=== PATIENT | female | born 1960 | race Caucasian/White ===

== ENCOUNTER 2016-12-21 09:53 | Observation (INO) | payer SELFPAY ==
--- NOTE | 2016-12-21 10:25 | ER Document Report ---
ED Medical Screen (RME) - General Stated Complaint: CHEST PAIN Time seen by provider: 10:23 Mode of Arrival: Ambulatory Information source: Patient, Relative Notes: 56-year-old female presents to ED for left chest pain goes around to her left axilla and states that the left side jerks a lot. Her sister is with her. She states that the patient has dementia. Patient smokes but no alcohol or drugs. Sister denies history of heart problems blood pressure cholesterol. Sister states that the parents both have heart problems. Sr. denies any recent injury to cause this pain. I have greeted and performed a rapid initial assessment of this patient. A comprehensive ED assessment and evaluation of the patient, analysis of test results and completion of medical decision making process will be conducted by an additional ED providers. TRAVEL OUTSIDE OF THE [place] IN LAST 30 DAYS: No - Related Data Allergies/Adverse Reactions: No Known Allergies Allergy (Unverified 12/21/16 10:22) Physical Exam - Vital signs Vitals: Temp Pulse Resp BP Pulse Ox 97.4 F 66 20 158/89 H 100 12/21/16 10:19 12/21/16 10:19 12/21/16 10:19 12/21/16 10:19 12/21/16 10:19 Course - Vital Signs Vital signs: Temp Pulse Resp BP Pulse Ox 97.4 F 66 20 158/89 H 100 12/21/16 10:19 12/21/16 10:19 12/21/16 10:19 12/21/16 10:19 12/21/16 10:19
[2016-12-21] MEDS ORDERED: ASPIRIN 81 MG TABLET, CHEWABLE PO ONE (10:26)
[2016-12-21 11:25] LABS: ABSOLUTE EOSINOPHILS # (AUTO) 0.1 10^3/uL (0.0-0.6); ABSOLUTE LYMPHOCYTES (AUTO) 1.1 10^3/uL (0.5-4.7); ABSOLUTE MONOCYTES (AUTO) 0.3 10^3/uL (0.1-1.4); ABSOLUTE NEUT (AUTO) 4.7 10^3/uL (1.7-8.2); BASOPHILS % (AUTO) 0.6 % (0-2); EOSINOPHILS % (AUTO) 1.7 % (0-6); HEMATOCRIT 43.7 % (36.0-47.0); HEMOGLOBIN 15.2 g/dL (12.0-15.5); HGB HCT DIFFERENCE 1.9; LYMPHOCYTES % (AUTO) 18.1 % (13-45); MEAN CORPUSCULAR HGB CONC 34.7 g/dL (32.0-36.0); MEAN CORPUSCULAR VOLUME 92 fl (80-97); MONOCYTES % (AUTO) 4.4 % (3-13); RED BLOOD COUNT 4.74 10^6/uL (3.72-5.28); RED CELL DISTRIBUTION WIDTH 13.9 % (11.5-14.0); SEGMENTED NEUTROPHILS % (AUTO) 75.2 % (42-78); WHITE BLOOD COUNT 6.2 10^3/uL (4.0-10.5)
[2016-12-21 11:32] LABS: PROTHROMBIN TIME 12.2 SEC (11.4-15.4)
[2016-12-21 11:33] LABS: PARTIAL THROMBOPLASTIN TIME 31.6 SEC (23.5-35.8)
[2016-12-21 11:46] LABS: ALANINE AMINOTRANSFERASE 239 U/L (9-52); ALBUMIN 4.4 g/dL (3.5-5.0); ALKALINE PHOSPHATASE 166 U/L (38-126); ANION GAP 12 (5-19); ASPARTATE AMINO TRANSFERASE 119 U/L (14-36); BILIRUBIN,DIRECT 0.3 mg/dL (0.0-0.4); BILIRUBIN,TOTAL 0.7 mg/dL (0.2-1.3); BLOOD UREA NITROGEN 12 mg/dL (7-20); CALCIUM 10.3 mg/dL (8.4-10.2); CARBON DIOXIDE 28 mmol/L (22-30); CHLORIDE 109 mmol/L (98-107); CREATINE KINASE 84 U/L (30-135); CREATININE RESULT 0.72 mg/dL (0.52-1.25); GLUCOSE 98 mg/dL (75-110); LIPASE 121.8 U/L (23-300); POTASSIUM 4.1 mmol/L (3.6-5.0); SODIUM 149.1 mmol/L (137-145); TOTAL PROTEIN 7.2 g/dL (6.3-8.2)
[2016-12-21 11:58] LABS: CREATINE KINASE MB 1.55 ng/mL (<4.55)
[2016-12-21 11:59] LABS: TROPONIN I < 0.012 ng/mL
--- NOTE | 2016-12-21 12:28 | ER Document Report ---
ED General - General Chief Complaint: Chest Pain Stated Complaint: CHEST PAIN Mode of Arrival: Ambulatory Information source: Patient Notes: 56-year-old female with early onset dementia presents with family member with concerns of left-sided chest pain that lasted for about 30 minutes. Patient was found crying complaining of the pain. Pain seemed to radiate across her breast to her side. Patient this time denies any concerns family member notes they contacted the family doctor who requested patient be seen TRAVEL OUTSIDE OF THE [place] IN LAST 30 DAYS: No - HPI Onset: Just prior to arrival Onset/Duration: Sudden Quality of pain: Achy Severity: Mild Pain Level: 1 Associated symptoms: Chest pain Exacerbated by: Denies Relieved by: Denies Similar symptoms previously: No Recently seen / treated by doctor: No - Related Data Allergies/Adverse Reactions: No Known Allergies Allergy (Unverified 12/21/16 10:22) Past Medical History - General Information source: Patient, Relative - Social History Smoking Status: Current Every Day Smoker Cigarette use (# per day): Yes Chew tobacco use (# tins/day): No Smoking Education Provided: No Frequency of alcohol use: None Drug Abuse: None Family History: Reviewed & Not Pertinent Patient has suicidal ideation: No Patient has homicidal ideation: No - Past Medical History Cardiac Medical History: Reports: Hx Hypertension - noncompliant with meds Renal/ Medical History: Denies: Hx Peritoneal Dialysis Past Surgical History: Reports: Hx Cholecystectomy - Immunizations Hx Diphtheria, Pertussis, Tetanus Vaccination: No Review of Systems - Review of Systems Notes: REVIEW OF SYSTEMS: CONSTITUTIONAL : Denies fever, chills, or sweats. Denies recent illness. EENT: Denies eye, ear, throat, or mouth pain or symptoms. Denies nasal or sinus congestion or discharge. Denies throat, tongue, or mouth swelling or difficulty swallowing. CARDIOVASCULAR: Admits to chest pain RESPIRATORY: Denies cough, cold, or chest congestion. Denies shortness of breath, difficulty breathing, or wheezing. GASTROINTESTINAL: Denies abdominal pain or distention. Denies nausea, vomiting , or diarrhea. Denies blood in vomitus, stools, or per rectum. Denies black, tarry stools. Denies constipation. GENITOURINARY: Denies difficulty urinating, painful urination, burning, frequency, blood in urine, or discharge. FEMALE GENITOURINARY: Denies vaginal bleeding, heavy or abnormal periods, irregular periods. Denies vaginal discharge or odor. MUSCULOSKELETAL: Denies back or neck pain or stiffness. Denies joint pain or swelling. SKIN: Denies rash, lesions or sores. HEMATOLOGIC : Denies easy bruising or bleeding. LYMPHATIC: Denies swollen, enlarged glands. NEUROLOGICAL: Denies confusion or altered mental status. Denies passing out or loss of consciousness. Denies dizziness or lightheadedness. Denies headache. Denies weakness or paralysis or loss of use of either side. Denies problems with gait or speech. Denies sensory loss, numbness, or tingling. Denies seizures. PSYCHIATRIC: Denies anxiety or stress. Denies depression, suicidal ideation, or homicidal ideation. ALL OTHER SYSTEMS REVIEWED AND NEGATIVE. Dictation was performed using [employer] voice recognition software PHYSICAL EXAMINATION: GENERAL: Chronically ill-appearing cachectic female HEAD: Atraumatic, normocephalic. EYES: Pupils equal round and reactive to light, extraocular movements intact, conjunctiva are normal. ENT: Nares patent, oropharynx clear without exudates. Moist mucous membranes. NECK: Normal range of motion, supple without lymphadenopathy LUNGS: Breath sounds clear to auscultation bilaterally and equal. No wheezes rales or rhonchi. HEART: Regular rate and rhythm without murmurs ABDOMEN: Soft, nontender, nondistended abdomen. No guarding, no rebound. No masses appreciated. Female : deferred Musculoskeletal: Normal range of motion, no pitting or edema. No cyanosis. NEUROLOGICAL: Cranial nerves grossly intact. Normal speech, normal gait. Normal sensory, motor exams PSYCH: Normal mood, normal affect. SKIN: Warm, Dry, normal turgor, no rashes or lesions noted. Physical Exam - Vital signs Vitals: Temp Pulse Resp BP Pulse Ox 97.4 F 66 20 158/89 H 100 12/21/16 10:19 12/21/16 10:19 12/21/16 10:19 12/21/16 10:19 12/21/16 10:19 Course - Re-evaluation Re-evalutation: 12/21/16 12:30 Cardiac enzymes are negative, patient does have elevated liver enzymes. Given that the patient had 30 minutes of chest pain with a history of hypertension smoking and uncontrolled by medications I believe she will require an ACS rule out primary care physician was contacted awaiting callback 12/21/16 12:42 - Vital Signs Vital signs: Temp Pulse Resp BP Pulse Ox 97.4 F 66 20 158/89 H 100 12/21/16 10:19 12/21/16 10:19 12/21/16 10:19 12/21/16 10:19 12/21/16 10:19 - Laboratory Result Diagrams: 12/21/16 10:58 12/21/16 10:58 Laboratory results interpreted by me: 12/21/16 12/21/16 10:58 10:58 Plt Count 127 L Sodium 149.1 H Chloride 109 H Calcium 10.3 H AST 119 H ALT 239 H Alkaline Phosphatase 166 H - Diagnostic Test Radiology reviewed: Image reviewed, Reports reviewed - EKG Interpretation by Me EKG shows normal: Sinus rhythm, Walls, Intervals, QRS Complexes Discharge - Discharge Clinical Impression: Elevated liver enzymes Chest pain Qualifiers: Chest pain type: unspecified Qualified Code(s): R07.9 - Chest pain, unspecified Hypertension Qualifiers: Hypertension type: essential hypertension Qualified Code(s): I10 - Essential ( primary) hypertension Dementia Qualifiers: Dementia type: unspecified type Dementia behavioral disturbance: without behavioral disturbance Qualified Code(s): F03.90 - Unspecified dementia without behavioral disturbance Condition: Stable Disposition: ADMITTED OBSERVATION Admitting Provider: Roxana Unit Admitted: Telemetry
[2016-12-21] MEDS ORDERED: LORAZEPAM INJ 2 MG/1 ML VIAL IV ONE (15:11)
[2016-12-21 17:33] LABS: CREATINE KINASE MB 1.21 ng/mL (<4.55)
[2016-12-21 17:34] LABS: TROPONIN I < 0.012 ng/mL
--- NOTE | 2016-12-21 18:18 | PDOC H&P ---
History of Present Illness Admission Date/PCP: 12/21/16 12:56 CHUCK [place] Patient complains of: Chest pain History of Present Illness: KAI AMES is a 56 year old female known to my practice who was brought to the ED by sister due to reported left sided chest pain that radiate to her left arm and upper back. Sister reported witnessing patient in pain and crying with tears. Pain lasted about 40 minutes before presenting to the ED. There was no observed difficulty with breathing, diaphoresis, nausea, or vomiting. No reported abdominal pain. No fever or chills. Patient has history of dementia with behavioral disturbance, hypertension, cigarette smoking, anxiety, low back pain, adult failure to thrive and medication noncompliance. There is no history of alcohol or illicit drug abuse. No significant family history of coronary heart disease. Past Medical History Cardiac Medical History: Reports: Hypertension - noncompliant with meds Psychiatric Medical History: Reports: Dementia, Tobacco Dependency Past Surgical History Past Surgical History: Reports: Cholecystectomy Social History Smoking Status: Current Every Day Smoker Cigarettes Packs Per Day: 1 Frequency of Alcohol Use: Rare Hx Recreational Drug Use: No Drugs: None Hx Prescription Drug Abuse: No - Advance Directive Resuscitation Status: Full Code Family History Family History: Reviewed & Not Pertinent Parental Family History Reviewed: Yes Children Family History Reviewed: Yes Sibling(s) Family History Reviewed.: Yes Medication/Allergy Home Medications: No Home Medications 12/21/16 Allergies/Adverse Reactions: No Known Allergies Allergy (Unverified 12/21/16 10:22) Review of Systems Review of Systems: Collaborated largely by sister and doctor's office note Constitutional: ABSENT: chills, fever(s), headache(s), weight gain, weight loss Eyes: ABSENT: visual disturbances Nose, Mouth, and Throat: ABSENT: as per HPI, headache(s), mouth pain, sore throat, vertigo, other Cardiovascular: PRESENT: chest pain. ABSENT: as per HPI, dyspnea on exertion, edema, orthropnea, palpitations, other Respiratory: ABSENT: as per HPI, cough, dyspnea, hemoptysis, sputum, other Gastrointestinal: ABSENT: as per HPI, abdominal pain, bloating, coffee ground emesis, constipation, diarrhea, dysphagia, heartburn, hematemesis, hematochezia , melena, nausea, vomiting, other Genitourinary: ABSENT: as per HPI, difficulty urinating, dysuria, hematuria, nocturia, other Musculoskeletal: PRESENT: back pain. ABSENT: as per HPI, deformity, joint swelling, muscle weakness, other Integumentary: ABSENT: as per HPI, diaphoresis, erythema, lesions, pruritus, rash, wounds, other Neurological: PRESENT: confusion, memory loss. ABSENT: as per HPI, abnormal gait, abnormal movements, abnormal speech, convulsions, dizziness, focal weakness, frequent falls, lack of coordination, numbness, paresthesias, restless legs, syncope, tingling, tremor(s), vertigo, weakness, other Psychiatric: ABSENT: as per HPI, anxiety, depression, hallucinations, homidical ideation, suicidal ideation, other Endocrine: ABSENT: as per HPI, cold intolerance, flushing, heat intolerance, menstrual abnormalities, polydipsia, polyphagia, polyuria, other Hematologic/Lymphatic: ABSENT: as per HPI, easy bleeding, easy bruising, lymphadenopathy, other Physical Exam Vital Signs: Temp Pulse Resp BP Pulse Ox 98.3 F 64 18 159/73 H 100 12/21/16 16:07 12/21/16 16:07 12/21/16 16:07 12/21/16 16:07 12/21/16 16:07 General appearance: PRESENT: no acute distress, cooperative Head exam: PRESENT: atraumatic, normocephalic Eye exam: PRESENT: conjunctiva pink, EOMI, PERRLA. ABSENT: scleral icterus Ear exam: PRESENT: normal external ear exam Mouth exam: PRESENT: moist, tongue midline Throat exam: ABSENT: post pharyngeal erythema, tonsillar erythema, tonsillar exudate, tonsillogmegaly, other Neck exam: PRESENT: full ROM. ABSENT: carotid bruit, JVD, lymphadenopathy, thyromegaly Respiratory exam: PRESENT: clear to auscultation harsh Cardiovascular exam: PRESENT: RRR. ABSENT: diastolic murmur, rubs, systolic murmur Pulses: PRESENT: normal dorsalis pedis pul, +2 pedal pulses bilateral Vascular exam: PRESENT: normal capillary refill GI/Abdominal exam: PRESENT: normal bowel sounds, soft. ABSENT: distended, guarding, mass, organolmegaly, rebound, tenderness Rectal exam: PRESENT: deferred Extremities exam: PRESENT: full ROM Musculoskeletal exam: PRESENT: deformity - due to joint involvement with arthritis Neurological exam: PRESENT: alert, awake. ABSENT: altered, oriented to person, oriented to place, oriented to time, oriented to situation, reflexes normal, abnormal gait, ataxia, CN II-XII grossly intact, motor sensory deficit, normal gait, aphasic, other Psychiatric exam: PRESENT: appropriate affect, normal mood. ABSENT: homicidal ideation, suicidal ideation Skin exam: PRESENT: dry, intact, warm. ABSENT: cyanosis, rash Results Laboratory Results: Reviewed on [employer] and form significant part of my medical decision making. 12/21/16 12/21/16 16:53 16:53 Creatine Kinase 95 CK-MB (CK-2) 1.21 Troponin I < 0.012 Impressions: Chest X-Ray 12/21/16 10:25 IMPRESSION: NO SIGNIFICANT RADIOGRAPHIC FINDING IN THE CHEST. Assessment & Plan - Diagnosis (1) Dementia with behavioral disturbance Qualifiers: Dementia type: unspecified type Qualified Code(s): F03.91 - Unspecified dementia with behavioral disturbance Is this a current diagnosis for this admission?: YesPlan: See admitting physician orders. (2) Severe protein-calorie malnutrition Is this a current diagnosis for this admission?: YesPlan: See admitting physician orders (3) Nicotine dependence Qualifiers: Nicotine product type: cigarettes Is this a current diagnosis for this admission?: YesPlan: See admitting physician orders (5) Chronic low back pain Qualifiers: Back pain laterality: unspecified Is this a current diagnosis for this admission?: YesPlan: See admitting physician orders (6) Chest pain Qualifiers: Chest pain type: unspecified Qualified Code(s): R07.9 - Chest pain, unspecified Is this a current diagnosis for this admission?: YesPlan: See admitting physician orders (7) Elevated liver enzymes Is this a current diagnosis for this admission?: YesPlan: See admitting physician orders (8) Hypertension Qualifiers: Hypertension type: essential hypertension Qualified Code(s): I10 - Essential (primary) hypertension Is this a current diagnosis for this admission?: YesPlan: See admitting physician orders - Time Time Spent: 50 to 70 Minutes - Inpatient Certification Medical Necessity: Need Close Monitoring Due to Risk of Patient Decompensation, Need For IV Fluids, Need For Continuous Telemetry Monitoring, Risk of Complication if Not Cared For in Hospital Post Hospital Care: D/C Sports Clerk Documentation - Plan Summary Plan Summary: See admitting physician orders
[2016-12-21 19:41] LABS: PROTHROMBIN TIME 12.5 SEC (11.4-15.4)
[2016-12-21 19:42] LABS: PARTIAL THROMBOPLASTIN TIME 30.8 SEC (23.5-35.8)
[2016-12-21] MEDS ORDERED: ENOXAPARIN SODIUM INJ 30 MG/0.3 ML DISP.SYRIN SUBCUT ONE (20:00)
--- NOTE | 2016-12-21 20:43 | EKG REPORT ---
SEVERITY:- ABNORMAL ECG - SINUS RHYTHM WILNER, CONSIDER BIATRIAL ABNORMALITIES : Confirmed by: Noemi Navarro 21-Dec-2016 20:42:59
[2016-12-21 23:05] LABS: CREATINE KINASE MB 1.04 ng/mL (<4.55)
[2016-12-21 23:43] LABS: TROPONIN I < 0.012 ng/mL
[2016-12-22] MEDS: LANSOPRAZOLE 30 MG TAB.RAP.DR PO SCH (05:24)
[2016-12-22 05:46] LABS: ABSOLUTE EOSINOPHILS # (AUTO) 0.2 10^3/uL (0.0-0.6); ABSOLUTE LYMPHOCYTES (AUTO) 1.3 10^3/uL (0.5-4.7); ABSOLUTE MONOCYTES (AUTO) 0.4 10^3/uL (0.1-1.4); ABSOLUTE NEUT (AUTO) 5.2 10^3/uL (1.7-8.2); BASOPHILS % (AUTO) 0.6 % (0-2); EOSINOPHILS % (AUTO) 2.1 % (0-6); HEMATOCRIT 39.7 % (36.0-47.0); HEMOGLOBIN 13.6 g/dL (12.0-15.5); HGB HCT DIFFERENCE 1.1; LYMPHOCYTES % (AUTO) 18.4 % (13-45); MEAN CORPUSCULAR HEMOGLOBIN 31.3 pg (27.0-33.4); MEAN CORPUSCULAR HGB CONC 34.2 g/dL (32.0-36.0); MEAN CORPUSCULAR VOLUME 92 fl (80-97); MONOCYTES % (AUTO) 5.5 % (3-13); RED BLOOD COUNT 4.34 10^6/uL (3.72-5.28); RED CELL DISTRIBUTION WIDTH 13.8 % (11.5-14.0); SEGMENTED NEUTROPHILS % (AUTO) 73.4 % (42-78); WHITE BLOOD COUNT 7.2 10^3/uL (4.0-10.5)
[2016-12-22 06:03] LABS: ALANINE AMINOTRANSFERASE 158 U/L (9-52); ALBUMIN 3.9 g/dL (3.5-5.0); ALKALINE PHOSPHATASE 135 U/L (38-126); ANION GAP 14 (5-19); ASPARTATE AMINO TRANSFERASE 58 U/L (14-36); BILIRUBIN,DIRECT 0.3 mg/dL (0.0-0.4); BILIRUBIN,TOTAL 1.1 mg/dL (0.2-1.3); BLOOD UREA NITROGEN 10 mg/dL (7-20); CALCIUM 9.8 mg/dL (8.4-10.2); CARBON DIOXIDE 21 mmol/L (22-30); CHLORIDE 111 mmol/L (98-107); CREATINE KINASE 135 U/L (30-135); CREATININE RESULT 0.62 mg/dL (0.52-1.25); GLUCOSE 93 mg/dL (75-110); POTASSIUM 3.7 mmol/L (3.6-5.0); SODIUM 145.8 mmol/L (137-145); TOTAL PROTEIN 6.4 g/dL (6.3-8.2)
[2016-12-22 06:14] LABS: TROPONIN I < 0.012 ng/mL
[2016-12-22] MEDS: ENOXAPARIN SODIUM INJ 30 MG/0.3 ML DISP.SYRIN SUBCUT SCH (07:45)
[2016-12-22] MEDS: LISINOPRIL 10 MG TABLET PO SCH (09:04)
[2016-12-22] MEDS: HYDROCHLOROTHIAZIDE 12.5 MG CAPSULE PO SCH (09:05)
[2016-12-22] MEDS: PRENATAL VITAMIN W-O CA NO5/FE FUMARATE/FA CAPSULE PO SCH (09:05)
[2016-12-22] MEDS: OMEGA-3 ACID ETHYL ESTERS 1 GM CAPSULE PO SCH (09:05)
[2016-12-22] MEDS ORDERED: (PENDING PHARMACY ID) (Multivits-Min/Iron/Fa/Lutein [Centrum Silver Women Tablet] 1 TAB) PO SCH (10:00)
[2016-12-22] MEDS ORDERED: (PENDING PHARMACY ID) (Lisinopril/Hydrochlorothiazide [Lisinopril-Hctz 10-12.5 Mg Tab] 1 T PO SCH (10:00)
[2016-12-22] MEDS ORDERED: (PENDING PHARMACY ID) (Memantine Hcl/Donepezil Hcl [Namzaric 28 Mg-10 Mg Capsule] 1 CAP) PO SCH (10:00)
[2016-12-22] MEDS ORDERED: (PENDING PHARMACY ID) (Omega-3 Fatty Acids/Fish Oil [Fish Oil 1,000 Mg Capsule] 1 CAP) PO SCH (10:00)
[2016-12-22] MEDS ORDERED: NICOTINE 21 MG/24 HR PATCH.TD24 TD ONE (12:45)
--- NOTE | 2016-12-22 17:22 | PDOC PROGRESS REPORT ---
Subjective Progress Note for:: 12/22/16 Subjective:: Patient remain disruptive with care due to her baseline dementia. She remain on IV fluid hydration. No reported observed chest pain or difficulty with breathing. No reported fever or chills. No vomiting or diarrhea. She remain on soft wrist restrain and frequent reorientation for her confusional state management. Physical Exam Vital Signs: Temp Pulse Resp BP Pulse Ox 98.0 F 54 L 16 146/79 H 99 12/22/16 08:00 12/22/16 08:00 12/22/16 08:00 12/22/16 08:00 12/22/16 08:00 Intake & Output 12/21/16 12/22/16 12/23/16 06:59 06:59 06:59 Intake Total 1272 Balance 1272 Weight 42.5 kg General appearance: PRESENT: no acute distress, cooperative, thin Head exam: PRESENT: atraumatic, normocephalic Eye exam: PRESENT: conjunctiva pink, EOMI, PERRLA. ABSENT: scleral icterus Mouth exam: PRESENT: moist Respiratory exam: PRESENT: clear to auscultation harsh Cardiovascular exam: PRESENT: RRR. ABSENT: diastolic murmur, rubs, systolic murmur GI/Abdominal exam: PRESENT: normal bowel sounds, soft. ABSENT: distended, guarding, mass, organolmegaly, rebound, tenderness Extremities exam: PRESENT: full ROM Musculoskeletal exam: PRESENT: deformity - related to joint involvement with arthritis Neurological exam: PRESENT: alert, awake. ABSENT: oriented to person, oriented to place, oriented to time, oriented to situation, CN II-XII grossly intact, motor sensory deficit Psychiatric exam: PRESENT: appropriate affect - but globally disoriented Skin exam: PRESENT: dry, intact, warm. ABSENT: cyanosis, rash Results Laboratory Results: 12/22/16 04:45 12/22/16 04:45 12/22/16 12/22/16 04:45 04:45 WBC 7.2 RBC 4.34 Hgb 13.6 Hct 39.7 MCV 92 MCH 31.3 MCHC 34.2 RDW 13.8 Plt Count 118 L Seg Neutrophils % 73.4 Lymphocytes % 18.4 Monocytes % 5.5 Eosinophils % 2.1 Basophils % 0.6 Absolute Neutrophils 5.2 Absolute Lymphocytes 1.3 Absolute Monocytes 0.4 Absolute Eosinophils 0.2 Absolute Basophils 0.0 Sodium 145.8 H Potassium 3.7 Chloride 111 H Carbon Dioxide 21 L Anion Gap 14 BUN 10 Creatinine 0.62 Est GFR ( Amer) > 60 Est GFR (Non-Af Amer) > 60 Glucose 93 Calcium 9.8 Total Bilirubin 1.1 AST 58 H ALT 158 H Alkaline Phosphatase 135 H Total Protein 6.4 Albumin 3.9 12/21/16 12/21/16 12/21/16 16:53 16:53 22:30 Creatine Kinase 95 97 CK-MB (CK-2) 1.21 Troponin I < 0.012 12/21/16 12/22/16 12/22/16 22:30 04:45 04:45 Creatine Kinase 135 CK-MB (CK-2) 1.04 1.40 Troponin I < 0.012 < 0.012 Impressions: Chest X-Ray 12/21/16 10:25 IMPRESSION: NO SIGNIFICANT RADIOGRAPHIC FINDING IN THE CHEST. Assessment & Plan - Diagnosis (1) Dementia with behavioral disturbance Qualifiers: Dementia type: unspecified type Qualified Code(s): F03.91 - Unspecified dementia with behavioral disturbance Is this a current diagnosis for this admission?: YesPlan: See attending physician orders. (2) Severe protein-calorie malnutrition Is this a current diagnosis for this admission?: YesPlan: See attending physician orders. (3) Nicotine dependence Qualifiers: Nicotine product type: cigarettes Is this a current diagnosis for this admission?: YesPlan: See attending physician orders. (4) Anxiety Is this a current diagnosis for this admission?: YesPlan: See attending physician orders. (5) Chronic low back pain Qualifiers: Back pain laterality: unspecified Is this a current diagnosis for this admission?: Yes (6) Chest pain Qualifiers: Chest pain type: unspecified Qualified Code(s): R07.9 - Chest pain, unspecified Is this a current diagnosis for this admission?: Yes (7) Elevated liver enzymes Is this a current diagnosis for this admission?: YesPlan: See attending physician orders. (8) Hypertension Qualifiers: Hypertension type: essential hypertension Qualified Code(s): I10 - Essential (primary) hypertension Is this a current diagnosis for this admission?: YesPlan: See attending physician orders. - Time Time Spent with patient: 25-34 minutes Medications reviewed and adjusted accordingly: Yes Anticipated discharge: SNF - Inpatient Certification Medical Necessity: Need For IV Fluids, Need For Continuous Telemetry Monitoring , Risk of Complication if Not Cared For in Hospital Post Hospital Care: D/C or Transfer Summary - Plan Summary Plan Summary: See attending physician orders.
[2016-12-22] MEDS: TRAMADOL HCL 50 MG TABLET PO PRN (23:26)
[2016-12-23] MEDS: LANSOPRAZOLE 30 MG TAB.RAP.DR PO SCH (05:35)
[2016-12-23] MEDS: ENOXAPARIN SODIUM INJ 30 MG/0.3 ML DISP.SYRIN SUBCUT SCH (08:04)
[2016-12-23] MEDS: HYDROCHLOROTHIAZIDE 12.5 MG CAPSULE PO SCH (11:02)
[2016-12-23] MEDS: OMEGA-3 ACID ETHYL ESTERS 1 GM CAPSULE PO SCH (11:03)
[2016-12-23] MEDS: LISINOPRIL 10 MG TABLET PO SCH (11:03)
[2016-12-23] MEDS: PRENATAL VITAMIN W-O CA NO5/FE FUMARATE/FA CAPSULE PO SCH (11:03)
[2016-12-23] MEDS: NICOTINE 21 MG/24 HR PATCH.TD24 TD SCH (11:03)
[2016-12-23] MEDS: NORMAL SALINE 1000 ML 1,000 ML IV PRN (12:44)
--- NOTE | 2016-12-23 16:19 | PDOC PROGRESS REPORT ---
Subjective Progress Note for:: 12/23/16 Subjective:: Patient was admitted for chest pain, she has baseline dementia she is in restrained confuse Physical Exam Vital Signs: Temp Pulse Resp BP Pulse Ox 97.7 F 57 L 20 147/67 H 100 12/23/16 12:10 12/23/16 12:10 12/23/16 12:10 12/23/16 12:10 12/23/16 12:10 Intake & Output 12/22/16 12/23/16 12/24/16 06:59 06:59 06:59 Intake Total 1272 3025 540 Output Total 2200 1400 Balance 1272 825 -860 Weight 42.5 kg 42 kg General appearance: PRESENT: no acute distress Eye exam: PRESENT: PERRLA Respiratory exam: PRESENT: clear to auscultation harsh Cardiovascular exam: PRESENT: +S1, +S2 Results Laboratory Results: 12/22/16 04:45 12/22/16 04:45 12/21/16 12/21/16 12/21/16 16:53 16:53 22:30 Creatine Kinase 95 97 CK-MB (CK-2) 1.21 Troponin I < 0.012 12/21/16 12/22/16 12/22/16 22:30 04:45 04:45 Creatine Kinase 135 CK-MB (CK-2) 1.04 1.40 Troponin I < 0.012 < 0.012 Impressions: Chest X-Ray 12/21/16 10:25 IMPRESSION: NO SIGNIFICANT RADIOGRAPHIC FINDING IN THE CHEST. Assessment & Plan - Diagnosis (1) Chest pain Qualifiers: Chest pain type: unspecified Qualified Code(s): R07.9 - Chest pain, unspecified Is this a current diagnosis for this admission?: Yes (2) Dementia with behavioral disturbance Qualifiers: Dementia type: unspecified type Qualified Code(s): F03.91 - Unspecified dementia with behavioral disturbance Is this a current diagnosis for this admission?: Yes (3) Elevated liver enzymes Is this a current diagnosis for this admission?: Yes (4) Hypertension Qualifiers: Hypertension type: essential hypertension Qualified Code(s): I10 - Essential (primary) hypertension Is this a current diagnosis for this admission?: Yes (5) Nicotine dependence Qualifiers: Nicotine product type: cigarettes Is this a current diagnosis for this admission?: Yes
[2016-12-24] MEDS: LANSOPRAZOLE 30 MG TAB.RAP.DR PO SCH (05:48)
[2016-12-24] MEDS: NORMAL SALINE 1000 ML 1,000 ML IV PRN ×2 (05:50→17:00)
[2016-12-24] MEDS: ENOXAPARIN SODIUM INJ 30 MG/0.3 ML DISP.SYRIN SUBCUT SCH (08:16)
[2016-12-24] MEDS: OMEGA-3 ACID ETHYL ESTERS 1 GM CAPSULE PO SCH (11:08)
[2016-12-24] MEDS: NICOTINE 21 MG/24 HR PATCH.TD24 TD SCH (11:09)
[2016-12-24] MEDS: HYDROCHLOROTHIAZIDE 12.5 MG CAPSULE PO SCH (11:09)
[2016-12-24] MEDS: PRENATAL VITAMIN W-O CA NO5/FE FUMARATE/FA CAPSULE PO SCH (11:09)
[2016-12-24] MEDS: LISINOPRIL 10 MG TABLET PO SCH (11:09)
[2016-12-25] MEDS: LANSOPRAZOLE 30 MG TAB.RAP.DR PO SCH (06:01)
[2016-12-25] MEDS: NORMAL SALINE 1000 ML 1,000 ML IV PRN (06:37)
[2016-12-25] MEDS: ENOXAPARIN SODIUM INJ 30 MG/0.3 ML DISP.SYRIN SUBCUT SCH (07:47)
[2016-12-25] MEDS: TRAMADOL HCL 50 MG TABLET PO PRN (08:59)
[2016-12-25] MEDS: PRENATAL VITAMIN W-O CA NO5/FE FUMARATE/FA CAPSULE PO SCH (09:00)
[2016-12-25] MEDS: HYDROCHLOROTHIAZIDE 12.5 MG CAPSULE PO SCH (09:00)
[2016-12-25] MEDS: NICOTINE 21 MG/24 HR PATCH.TD24 TD SCH (09:00)
[2016-12-25] MEDS: OMEGA-3 ACID ETHYL ESTERS 1 GM CAPSULE PO SCH (09:00)
[2016-12-25] MEDS: LISINOPRIL 10 MG TABLET PO SCH (09:00)
--- NOTE | 2016-12-25 13:16 | PDOC DISCHARGE SUMMARY ---
General - Admit/Disc Date/PCP Admission Date/Primary Care Provider: 12/21/16 12:56 CHUCK MENDEZ Discharge Date: 12/25/16 - Discharge Diagnosis (1) Dementia with behavioral disturbance Is this a current diagnosis for this admission?: Yes (2) Severe protein-calorie malnutrition Is this a current diagnosis for this admission?: Yes (3) Nicotine dependence Is this a current diagnosis for this admission?: Yes (4) Anxiety Is this a current diagnosis for this admission?: Yes (5) Chronic low back pain Is this a current diagnosis for this admission?: Yes (6) Chest pain Is this a current diagnosis for this admission?: Yes (7) Elevated liver enzymes Is this a current diagnosis for this admission?: Yes (8) Hypertension Is this a current diagnosis for this admission?: Yes - Additional Information Resuscitation Status: Full Code Discharge Diet: Cardiac Discharge Activity: Activity As Tolerated Home Medications: Lisinopril/Hydrochlorothiazide [Lisinopril-Hctz 10-12.5 mg Tab] 1 tab PO DAILY 12/21/16 Memantine HCl/Donepezil HCl [Namzaric 28 mg-10 mg Capsule] 1 cap PO DAILY Multivits-Min/Iron/FA/Lutein [Centrum Silver Women Tablet] 1 tab PO DAILY [place]-3 Fatty Acids/Fish Oil [Fish Oil 1,000 mg Capsule] 1 cap PO DAILY Tramadol HCl 50 mg PO TID PRN 12/21/16 Nicotine [Nicoderm 21 mg/24 Hr Transderm Patch] 1 each TD DAILY #0 patch.[id number] History of Present Illness History of Present Illness: KAI AMES is a 56 year old female known to my practice who was brought to the ED by sister due to reported left sided chest pain that radiate to her left arm and upper back. Sister reported witnessing patient in pain and crying with tears. Pain lasted about 40 minutes before presenting to the ED. There was no observed difficulty with breathing, diaphoresis, nausea, or vomiting. No reported abdominal pain. No fever or chills. Patient has history of dementia with behavioral disturbance, hypertension, cigarette smoking, anxiety, low back pain, adult failure to thrive and medication noncompliance. There is no history of alcohol or illicit drug abuse. No significant family history of coronary heart disease. Hospital Course Hospital Course: She ruled out for ACS by serial cardiac enzymes and EKG monitoring. Demonstrated some degree of hypernatremia which was managed with IV fluid support but patient was so disruptive of care necessitating use of soft wrist restrains. Family declined recommended SNF demntia unit placement and patient will be discharged home to their custody. Physical Exam Vital Signs: Temp Pulse Resp BP Pulse Ox 98.4 F 56 L 15 145/74 H 100 12/25/16 11:28 12/25/16 11:28 12/25/16 11:28 12/25/16 11:28 12/25/16 11:28 Intake & Output 12/24/16 12/25/16 12/26/16 06:59 06:59 06:59 Intake Total 2160 3187 Output Total 3000 453 Balance -840 2734 Physical Exam: General appearance: PRESENT: no acute distress, cooperative, thin Head exam: PRESENT: atraumatic, normocephalic Eye exam: PRESENT: conjunctiva pink, EOMI, PERRLA. ABSENT: scleral icterus Mouth exam: PRESENT: moist Respiratory exam: PRESENT: clear to auscultation harsh Cardiovascular exam: PRESENT: RRR. ABSENT: diastolic murmur, rubs, systolic murmur GI/Abdominal exam: PRESENT: normal bowel sounds, soft. ABSENT: distended, guarding, mass, organomegaly, rebound, tenderness Extremities exam: PRESENT: full ROM Musculoskeletal exam: PRESENT: deformity - related to joint involvement with arthritis Neurological exam: PRESENT: alert, awake. ABSENT: oriented to person, oriented to place, oriented to time, oriented to situation, CN II-XII grossly intact, motor sensory deficit Psychiatric exam: PRESENT: appropriate affect - but globally disoriented Skin exam: PRESENT: dry, intact, warm. ABSENT: cyanosis, rash Results Laboratory Results: 12/22/16 04:45 12/22/16 04:45 12/21/16 12/21/16 12/21/16 16:53 16:53 22:30 Creatine Kinase 95 97 CK-MB (CK-2) 1.21 Troponin I < 0.012 12/21/16 12/22/16 12/22/16 22:30 04:45 04:45 Creatine Kinase 135 CK-MB (CK-2) 1.04 1.40 Troponin I < 0.012 < 0.012 Impressions: Chest X-Ray 12/21/16 10:25 IMPRESSION: NO SIGNIFICANT RADIOGRAPHIC FINDING IN THE CHEST. Qualifiers PATEINT BEING DISCHARGED WITH ANY OF THE FOLLOWING DIAGNOSIS?: No Plan Discharge Plan: D/C home today. I discussed issue of continue cigarette smoking by this patient with her sister whom she lives with. Patient cannot procure cigarette by herself due to mental limitation. Follow up with me in the office as instructed upon discharge.
[2016-12-25 13:29] VITALS: BP 146/88
== END 2016-12-25 15:00 | disposition home or self-care (01) ==
LOC: ER 09:53 → UNDOADMOB 12:56 → EH 12:56 → 4S 12:56 → EH 16:00 → 4S 16:00
PROVIDERS: ADMIT Internal Medicine Geriatric Medicine; ATTEND Internal Medicine Geriatric Medicine
PROC: 3E033GC Introduction of Other Therapeutic Substance into Peripheral Vein, Percutaneous Approach (ICD-10-PCS; principal; 2016-12-21)
DX: R07.9 Chest pain, unspecified (principal); I10 Essential (primary) hypertension; F03.91 Unspecified dementia, unspecified severity, with behavioral disturbance; E43 Unspecified severe protein-calorie malnutrition; F41.9 Anxiety disorder, unspecified; M54.5 Low back pain; G89.29 Other chronic pain; R74.8 Abnormal levels of other serum enzymes; F17.210 Nicotine dependence, cigarettes, uncomplicated
CPT/HCPCS: 93005; 99285; 96374; 36415 ×2; 82553 ×2; 82550 ×2; 83690; 85025 ×2; 85610; 85730; 80053 ×2; 84484 ×2; 71020; 93010; G0378 ×5; J2060; J1650 ×3; J7030 ×3